=== PATIENT | male | born 1980 ===

== ENCOUNTER 2018-10-02 05:29 | Observation (INO) | payer MEDICAID, OTHER ==
[2018-10-02 06:41] LABS: BASO % 0.3 % (0.0-2.0); EOS % 0.1 % (0.0-4.0); HEMOGLOBIN 17.1 g/dL (12.0-18.0); LYMPH # 1.5 K/uL (1.0-4.3); LYMPH % 16.8 % (20.0-40.0); MEAN CELL VOLUME 85.6 fl (80.0-94.0); MEAN CORPUSCULAR HEMOGLOBIN 29.5 pg (27.0-31.0); MEAN CORPUSCULAR HGB CONC 34.5 g/dL (33.0-37.0); MEAN PLATELET VOLUME 9.4 fl (7.2-11.7); MONO # 0.4 K/uL (0.0-0.8); MONO % 4.5 % (0.0-10.0); NEUT # 7.2 K/uL (1.8-7.0); NEUT % 78.3 % (50.0-75.0); NRBC % 0.1 % (0.0-0.0); RBC 5.79 Mil/uL (4.40-5.90); RED CELL DISTRIBUTION WIDTH 13.9 % (11.5-14.5); WHITE BLOOD COUNT 9.1 K/uL (4.8-10.8)
[2018-10-02 07:30] LABS: BARBITURATES, UR NEGATIVE (NEGATIVE); BENZODIAZEPINES, UR NEGATIVE (NEGATIVE); OPIATES, UR NEGATIVE (NEGATIVE); PHENCYCLIDINE, UR NEGATIVE (NEGATIVE)
[2018-10-02 07:32] LABS: BLOOD UREA NITROGEN 3 mg/dl (9-20)
[2018-10-02 07:34] LABS: CALCIUM 9.1 mg/dL (8.4-10.2); GFR NON-AFRICAN AMERICAN > 60
--- NOTE | 2018-10-02 07:39 | ED PDOC ---
- Laboratory Results Result Diagrams: 10/02/18 04:20 10/02/18 04:20 Lab Results: Troponin I < 0.0120 ng/mL (0.00-0.120) 10/02/18 04:20 Medical Decision Making Medical Decision Making: Time: 7:00 Patient was signed out to me pending sobriety. Accession No. 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 PLEURA: No significant pleural effusion identified. No pneumothorax apparent. CARDIOVASCULAR: No aortic atherosclerotic calcification present. Normal cardiac size. No pulmonary vascular congestion. OSSEOUS STRUCTURES: No significant abnormalities. VISUALIZED UPPER ABDOMEN: Normal. OTHER FINDINGS: None. IMPRESSION: No active disease. Scribe Attestation: Documented by Ellen Sosa, acting as a scribe for Ellen Alfredo MD. Provider Scribe Attestation: All medical record entries made by the Scribe were at my direction and per sonally dictated by me. I have reviewed the chart and agree that the record accurately reflects my personal performance of the history, physical exam, medical decision making, and the department course for this patient. I have also personally directed, reviewed, and agree with the discharge instructions and disposition.
[2018-10-02 07:57] VITALS: BMI 28.3
[2018-10-02] MEDS ORDERED: Sodium Chloride 0.9% 1,000 ML IV STA (08:30)
--- NOTE | 2018-10-02 09:21 | RAD ---
Date of service: 10/02/2018 HISTORY: Bilateral chest pain COMPARISON: No prior study available for comparison TECHNIQUE: Chest PA and lateral FINDINGS: LUNGS: No active pulmonary disease. PLEURA: No significant pleural effusion identified. No pneumothorax apparent. CARDIOVASCULAR: No aortic atherosclerotic calcification present. Normal cardiac size. No pulmonary vascular congestion. OSSEOUS STRUCTURES: No significant abnormalities. VISUALIZED UPPER ABDOMEN: Normal. OTHER FINDINGS: None. IMPRESSION: No active disease.
[2018-10-02 11:13] LABS: PROTHROMBIN TIME 11.5 Seconds (9.8-13.1)
[2018-10-02 11:15] LABS: PARTIAL THROMBOPLASTIN TIME 27.1 Seconds (25.6-37.1)
--- NOTE | 2018-10-02 12:11 | CARD ---
APPROVED REPORT Date of service: 10/02/2018 EKG Measurement Heart [id number] <Conclusion> Sinus tachycardia Possible Left atrial enlargement T wave abnormality, consider inferior ischemia Abnormal ECG
[2018-10-02] MEDS ORDERED: Iodixanol 320 MG/ML 100 ML BOTTLE IV ONE (13:01)
[2018-10-02] MEDS ORDERED: Sodium Chloride 0.9% 50 ML IV ONE (13:01)
--- NOTE | 2018-10-02 14:48 | CT ---
Date of service: 10/02/2018 PROCEDURE: CT Chest with contrast (Pulmonary Angiogram) HISTORY: Bilateral CP COMPARISON: None available. TECHNIQUE: Axial computed tomography images were obtained of the chest in the pulmonary arterial phase of enhancement. Coronal and sagittal reformatted images were created and reviewed. Intravenous contrast dose: 95 mL Visipaque 320 Radiation dose: Total exam DLP = 358.44 mGy-cm. This CT exam was performed using one or more of the following dose reduction techniques: Automated exposure control, adjustment of the mA and/or kV according to patient size, and/or use of iterative reconstruction technique. FINDINGS: PULMONARY ARTERIES: Suboptimal opacification of the pulmonary arteries. Questionable nonobstructive pulmonary embolism in a right upper lobe segmental artery (series 3, image 33). AORTA: No acute findings. No thoracic aortic aneurysm. No aortic atherosclerotic calcification or mural plaque present. LUNGS: Unremarkable. No nodule, mass or pulmonary consolidation. PLEURAL SPACES: Unremarkable. No effusion or pneumothorax. HEART: Unremarkable. No cardiomegaly. No significant pericardial effusion. LYMPH NODES: No lymphadenopathy. BONES, CHEST WALL: Unremarkable. No fracture or destructive lesion OTHER FINDINGS: Unremarkable. IMPRESSION: Suboptimal opacification of the pulmonary arteries. Questionable nonobstructive pulmonary embolism in a right upper lobe segmental artery.
[2018-10-02] MEDS ORDERED: Enoxaparin 80 mg Syringe SC STA (14:55)
[2018-10-02] MEDS ORDERED: Multivitamin (MVI) 10 ML, Thiamine 100 MG, Folic Acid 1 MG in Sodium Chloride 0.9% 1,00... IV ONE (15:57)
[2018-10-02] MEDS ORDERED: Glucagon Recombinant 1 mg Inj IM PRN (16:12)
[2018-10-02] MEDS ORDERED: Dextrose 50% SYRINGE Inj (50 ml) IV PRN (16:12)
[2018-10-02] MEDS ORDERED: Dextrose 50% SYRINGE Inj (50 ml) IVP PRN (16:12)
--- NOTE | 2018-10-02 16:18 | CP.PCM.HP ---
<Linda Simmons - Last Filed: 10/02/18 17:03> History of Present Illness - History of Present Illness History of Present Illness: 38 yo male with history of DM2, htn and alcohol withdrawal presented to the ED because of chest pain that began at 1 am. He reports that he was in remission from drinking until the holidays where he began drinking heavily. He reports his last drink was last night since he began to feel this non-radiating chest pain. Chest pain is associated with palpitations, nausea, dizziness, dypsnea, and shaking. He denies fevers, chills, bilateral calf pain, or tremors today. Patient reports he was having tremors of his hands the past few days. ROS: negative except for stated above. 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 He reports a previous smoking history (1 cigarette/day) for an unknown amount of years but states he quit several years ago. Reports a heavy drinking history for many years but stopped when he was diagnosed with DM2 10 years ago. Allergies: NKDA ED: Vitals: tachycardic - D-dimer - CBC - BMP - CT angio chest- Pulmonary Embolism - PT/ PTT/ INR - Troponins (negative x2) Utox: negative except for alcohol (116) - Chest Xray: negative - EKG: Sinus tachycardia, Possible left atrial enlargement - Chest CT : suboptimal opacification of pulmonary arteries. Questionable nonobstructive pulmonary embolism in the right upper lobe segmental artery. - Lovenox 80mg SC stat - Lopressor 25mg po Stat - 1L bolus of NS Present on Admission - Present on Admission Any Indicators Present on Admission: No History of DVT/PE: No History of Uncontrolled Diabetes: No Review of Systems - Constitutional Constitutional: absent: Fatigue, Fever, Headache - EENT Eyes: absent: Change in Vision - Cardiovascular Cardiovascular: Chest Pain, Chest Pain at Rest, Chest Pain with Activity, Dyspnea, Dyspnea on Exertion, Palpitations, Rapid Heart Rate. absent: Edema, Pain Radiating to Arm/Neck/Jaw, Leg Edema, Pedal Edema Additional comments: palpitations - Respiratory Respiratory: Dyspnea. absent: Cough, Hemoptysis, Dyspnea on Exertion, Wheezing, Chest Congestion - Gastrointestinal Gastrointestinal: Nausea. absent: Abdominal Pain, Cramping, Diarrhea, Dysphagia - Genitourinary Genitourinary: As Per HPI - Neurological Neurological: Dizziness - Psychiatric Psychiatric: absent: Anxiety, Auditory Hallucinations, Hallucinations, Visual Hallucinations Meds Allergies/Adverse Reactions: Allergies Allergy/AdvReac Type Severity Reaction Status Date / Time No Known Allergies Allergy Verified 10/02/18 07:56 Physical Exam - Constitutional Appears: Non-toxic, No Acute Distress - Head Exam Head Exam: NORMAL INSPECTION - Eye Exam Eye Exam: Normal appearance - ENT Exam ENT Exam: Mucous Membranes Moist - Respiratory Exam Respiratory Exam: Clear to Auscultation Bilateral, NORMAL BREATHING PATTERN. absent: Accessory Muscle Use, Chest Wall Tenderness, Decreased Breath Sounds, Prolonged Expiratory Phase, Rales, Rhonchi, Wheezes, Respiratory Distress, Stridor - Cardiovascular Exam Cardiovascular Exam: Tachycardia, REGULAR RHYTHM, +S1, +S2. absent: Clicks, Diastolic murmur, Gallop, Irregular Rhythm, Rubs, +S4, Systolic Murmur - GI/Abdominal Exam GI & Abdominal Exam: Normal Bowel Sounds, Soft. absent: Distended, Firm, Guarding, Rebound, Rigid, Tenderness - Extremities Exam Extremities exam: Positive for: normal capillary refill, normal inspection, pedal pulses present. Negative for: calf tenderness, pedal edema, tenderness Additional comments: Mild tremor noted bilaterally of upper extremities as they were held straight out. - Neurological Exam Neurological exam: Alert, Normal Gait, Oriented x3 - Skin Skin Exam: Dry, Intact, Normal Color, Warm Results - Vital Signs Recent Vital Signs: Last Vital Signs Temp 98.7 F 10/02/18 15:01 Pulse 94 H 10/02/18 14:58 Resp 18 10/02/18 14:58 BP 148/93 H 10/02/18 14:58 Pulse Ox 99 10/02/18 14:58 - Labs Result Diagrams: 10/02/18 04:20 10/02/18 04:20 Labs: Laboratory Results - last 24 hr 10/02/18 10/02/18 10/02/18 04:20 04:20 04:20 WBC 9.1 RBC 5.79 Hgb 17.1 Hct 49.6 MCV 85.6 MCH 29.5 MCHC 34.5 RDW 13.9 Plt Count 249 MPV 9.4 Neut % (Auto) 78.3 H Lymph % (Auto) 16.8 L [place] % (Auto) 4.5 Eos % (Auto) 0.1 Baso % (Auto) 0.3 Neut # (Auto) 7.2 H Lymph # (Auto) 1.5 Ashley # (Auto) 0.4 Eos # (Auto) 0.0 Baso # (Auto) 0.0 PT INR APTT D-Dimer, Quantitative Sodium 134 Potassium 4.0 Chloride 95 L Carbon Dioxide 22 Anion Gap 21 H BUN 3 L Creatinine 0.6 L Est GFR ( Amer) > 60 Est GFR (Non-Af Amer) > 60 Random Glucose 287 H Calcium 9.1 Troponin I < 0.0120 Urine Opiates Screen Negative Urine Methadone Screen Negative Ur Barbiturates Screen Negative Ur Phencyclidine Scrn Negative Ur Amphetamines Screen Negative U Benzodiazepines Scrn Negative U Oth Cocaine Metabols Negative U Cannabinoids Screen Negative Alcohol, Quantitative 116 H 10/02/18 10/02/18 10:34 10:34 WBC RBC Hgb Hct MCV MCH MCHC RDW Plt Count MPV Neut % (Auto) Lymph % (Auto) [place] % (Auto) Eos % (Auto) Baso % (Auto) Neut # (Auto) Lymph # (Auto) Ashley # (Auto) Eos # (Auto) Baso # (Auto) PT 11.5 INR 1.0 APTT 27.1 D-Dimer, Quantitative 385 H Sodium Potassium Chloride Carbon Dioxide Anion Gap BUN Creatinine Est GFR ( Amer) Est GFR (Non-Af Amer) Random Glucose Calcium Troponin I < 0.0120 Urine Opiates Screen Urine Methadone Screen Ur Barbiturates Screen Ur Phencyclidine Scrn Ur Amphetamines Screen U Benzodiazepines Scrn U Oth Cocaine Metabols U Cannabinoids Screen Alcohol, Quantitative Assessment & Plan (1) Pulmonary embolism Status: Acute (2) Alcohol withdrawal Status: Acute (3) Diabetes mellitus type 2 in nonobese Status: Acute (4) Essential (primary) hypertension Status: Chronic (5) DVT prophylaxis Status: Acute (6) Full code status Status: Acute - Assessment and Plan (Free Text) Assessment: 38 yo male with history of DM2, HTN, and alcohol withdrawal admitted for pulmonary embolism and alcohol withdrawal. Plan: 1. Pulmonary embolism - Tachycardia - D dimer - 385 - CT chest angio : suboptimal opacification of pulmonary arteries. Questionable nonobstructive pulmonary embolism in the right upper lobe segmental artery. - Lovenox therapeutic dose- 80mg Q12H - Banana bag - EKG - evidence of pulmonary embolism - Chest Xray : negative -F/U Venous doppler - F/U am labs including inr, pt and ptt 2. Alcohol abuse with alcohol withdrawal - CIWA score of 3 - banana bag - Librium 25mg Q8H - Ativan Q4H PRN - Neuro checks Q4H - Q1 CIWA 3. Hypertension continue home medication of lisinopril 5mg daily 4. history of DM2 - Hold home dose of metformin given dose of contrast given for CT angio - Continue glipizide - hypoglycemia protocol - insulin sliding scale 5. DVT prophylaxis - SCD's, ambulation and lovenox. <Isaac Hutchison - Last Filed: 10/03/18 09:52> Results - Vital Signs Recent Vital Signs: Last Vital Signs Temp 98.0 F 10/03/18 08:47 Pulse 87 10/03/18 08:47 Resp 20 10/03/18 08:47 BP 146/97 H 10/03/18 08:47 Pulse Ox 98 10/03/18 08:47 - Labs Result Diagrams: 10/03/18 04:25 10/03/18 04:25 Labs: Laboratory Results - last 24 hr 10/02/18 10/02/18 10/02/18 10:34 10:34 17:26 WBC RBC Hgb Hct MCV MCH MCHC RDW Plt Count PT 11.5 INR 1.0 APTT 27.1 D-Dimer, Quantitative 385 H Sodium Potassium Chloride Carbon Dioxide Anion Gap BUN Creatinine Est GFR ( Amer) Est GFR (Non-Af Amer) POC Glucose (mg/dL) 216 H Random Glucose Calcium Troponin I < 0.0120 10/03/18 10/03/18 10/03/18 01:22 04:25 04:25 WBC 7.1 RBC 5.22 Hgb 15.6 Hct 45.2 MCV 86.6 MCH 29.8 MCHC 34.4 RDW 13.7 Plt Count 187 PT INR APTT D-Dimer, Quantitative Sodium 134 Potassium 3.5 L Chloride 99 Carbon Dioxide 25 Anion Gap 14 BUN 9 Creatinine 0.5 L Est GFR ( Amer) > 60 Est GFR (Non-Af Amer) > 60 POC Glucose (mg/dL) 252 H Random Glucose 198 H Calcium 8.7 Troponin I 10/03/18 10/03/18 05:26 08:42 WBC RBC Hgb Hct MCV MCH MCHC RDW Plt Count PT 11.2 INR 1.0 APTT 33.6 D-Dimer, Quantitative Sodium Potassium Chloride Carbon Dioxide Anion Gap BUN Creatinine Est GFR ( Amer) Est GFR (Non-Af Amer) POC Glucose (mg/dL) 209 H Random Glucose Calcium Troponin I Attending/Attestation - Attestation I have personally seen and examined this patient.: Yes I have fully participated in the care of the patient.: Yes I have reviewed all pertinent clinical information: Yes Notes (Text): 10/03/18 09:51 Patient seen and examined with resident. Case discussed and agreed with assessment and plan of management.
--- NOTE | 2018-10-02 17:40 | US ---
Date of service: 10/02/2018 PROCEDURE: Bilateral lower extremity venous duplex Doppler. HISTORY: rule out dvt COMPARISON: None available. TECHNIQUE: Bilateral common femoral, superficial femoral, popliteal and posterior tibial veins were evaluated. Flow was assessed with color Doppler, compressibility, assessment of phasic flow and augmentation response. FINDINGS: COMMON FEMORAL VEIN: Right CFV: Unremarkable. Left CFV: Unremarkable. SUPERFICIAL FEMORAL VEIN: Right SFV: Unremarkable. Left SFV: Unremarkable. POPLITEAL VEIN: Right Popliteal: Unremarkable. Left Popliteal: Unremarkable. POSTERIOR TIBIAL VEIN: Right PTV: Unremarkable. Left PTV: Unremarkable. OTHER FINDINGS: None. IMPRESSION: No evidence of deep venous thrombosis.
[2018-10-02] MEDS ORDERED: Enoxaparin 80 mg Syringe SC SCH (21:00)
[2018-10-02] MEDS: Enoxaparin 80 mg Syringe SC SCH (21:42)
[2018-10-03] MEDS ORDERED: Lidocaine 1% Inj (20ml) ONE (00:25)
[2018-10-03] MEDS: Insulin Regular 100 units/ml SC SCH ×3 (01:31→12:32)
[2018-10-03 06:06] LABS: HEMOGLOBIN 15.6 g/dL (12.0-18.0); MEAN CELL VOLUME 86.6 fl (80.0-94.0); MEAN CORPUSCULAR HEMOGLOBIN 29.8 pg (27.0-31.0); MEAN CORPUSCULAR HGB CONC 34.4 g/dL (33.0-37.0); RBC 5.22 Mil/uL (4.40-5.90); RED CELL DISTRIBUTION WIDTH 13.7 % (11.5-14.5); WHITE BLOOD COUNT 7.1 K/uL (4.8-10.8)
[2018-10-03 06:28] LABS: BLOOD UREA NITROGEN 9 mg/dl (9-20); CALCIUM 8.7 mg/dL (8.4-10.2); GFR NON-AFRICAN AMERICAN > 60
--- NOTE | 2018-10-03 08:49 | CP.PCM.DIS ---
Provider - Provider Date of Admission: 10/02/18 15:07 Attending physician: Isaac Hutchison MD Primary care physician: [facility]- Time Spent in preparation of Discharge (in minutes): 30 Diagnosis - Discharge Diagnosis (1) Pulmonary embolism Status: Acute (2) Alcohol withdrawal Status: Acute (3) Diabetes mellitus type 2 in nonobese Status: Acute (4) Essential (primary) hypertension Status: Chronic (5) DVT prophylaxis Status: Acute (6) Full code status Status: Acute Hospital Course - Lab Results Lab Results: Most Recent Lab Values WBC 7.1 K/uL (4.8-10.8) 10/03/18 04:25 RBC 5.22 Mil/uL (4.40-5.90) 10/03/18 04:25 Hgb 15.6 g/dL (12.0-18.0) 10/03/18 04:25 Hct 45.2 % (35.0-51.0) 10/03/18 04:25 MCV 86.6 fl (80.0-94.0) 10/03/18 04:25 MCH 29.8 pg (27.0-31.0) 10/03/18 04:25 MCHC 34.4 g/dL (33.0-37.0) 10/03/18 04:25 RDW 13.7 % (11.5-14.5) 10/03/18 04:25 Plt Count 187 K/uL (130-400) 10/03/18 04:25 MPV 9.4 fl (7.2-11.7) 10/02/18 04:20 Neut % (Auto) 78.3 % (50.0-75.0) H 10/02/18 04:20 Lymph % (Auto) 16.8 % (20.0-40.0) L 10/02/18 04:20 [place] % (Auto) 4.5 % (0.0-10.0) 10/02/18 04:20 Eos % (Auto) 0.1 % (0.0-4.0) 10/02/18 04:20 Baso % (Auto) 0.3 % (0.0-2.0) 10/02/18 04:20 Neut # (Auto) 7.2 K/uL (1.8-7.0) H 10/02/18 04:20 Lymph # (Auto) 1.5 K/uL (1.0-4.3) 10/02/18 04:20 [place] # (Auto) 0.4 K/uL (0.0-0.8) 10/02/18 04:20 Eos # (Auto) 0.0 K/uL (0.0-0.7) 10/02/18 04:20 Baso # (Auto) 0.0 K/uL (0.0-0.2) 10/02/18 04:20 PT 11.5 Seconds (9.8-13.1) 10/02/18 10:34 INR 1.0 10/02/18 10:34 APTT 27.1 Seconds (25.6-37.1) 10/02/18 10:34 D-Dimer, Quantitative 385 ng/mlDDU (0-230) H 10/02/18 10:34 Sodium 134 mmol/l (132-148) 10/03/18 04:25 Potassium 3.5 MMOL/L (3.6-5.0) L 10/03/18 04:25 Chloride 99 mmol/L (98-107) 10/03/18 04:25 Carbon Dioxide 25 mmol/L (22-30) 10/03/18 04:25 Anion Gap 14 (10-20) 10/03/18 04:25 BUN 9 mg/dl (9-20) 10/03/18 04:25 Creatinine 0.5 mg/dl (0.8-1.5) L 10/03/18 04:25 Est GFR ( Amer) > 60 10/03/18 04:25 Est GFR (Non-Af Amer) > 60 10/03/18 04:25 POC Glucose (mg/dL) 209 mg/dL (65-110) H 10/03/18 05:26 Random Glucose 198 mg/dL (75-110) H 10/03/18 04:25 Calcium 8.7 mg/dL (8.4-10.2) 10/03/18 04:25 Troponin I < 0.0120 ng/mL (0.00-0.120) 10/02/18 10:34 Urine Opiates Screen Negative (NEGATIVE) 10/02/18 04:20 Urine Methadone Screen Negative (NEGATIVE) 10/02/18 04:20 Ur Barbiturates Screen Negative (NEGATIVE) 10/02/18 04:20 Ur Phencyclidine Scrn Negative (NEGATIVE) 10/02/18 04:20 Ur Amphetamines Screen Negative (NEGATIVE) 10/02/18 04:20 U Benzodiazepines Scrn Negative (NEGATIVE) 10/02/18 04:20 U Oth Cocaine Metabols Negative (NEGATIVE) 10/02/18 04:20 U Cannabinoids Screen Negative (NEGATIVE) 10/02/18 04:20 Alcohol, Quantitative 116 mg/dl (0-10) H 10/02/18 04:20 - Hospital Course Hospital Course: 38 yo male with history of DM2, htn and alcohol withdrawal presented to the ED because of chest pain admitted for pulmonary embolism. Patient was tachycardic on the floor but was saturating 97-98% on room air. He was started on Lovenox 80mg Q12H for treatment of pulmondary embolism. D- DImer was only slightly elevated at 385. Dupplex of bilateral lower extremities were negative for DVT. Patient did not have any precipating factors for P.E. He did not have any telemetry events. Patient being discharged on Eliquis 10mg po BID for 7 days then 5 mg po bid. Patient will follow in the [facility]. Patient to repeat CTA of chest in 1 month. - Date & Time of H&P Date of H&P: 10/02/18 Discharge Exam - Head Exam Head Exam: NORMAL INSPECTION - Eye Exam Eye Exam: Normal appearance - ENT Exam ENT Exam: Mucous Membranes Moist - Respiratory Exam Respiratory Exam: Clear to PA & Lateral, NORMAL BREATHING PATTERN, UNREMARKABLE. absent: Decreased Breath Sounds, Prolonged Expiratory Phase, Rales, Rhonchi, Wheezes, Respiratory Distress, Stridor - Cardiovascular Exam Cardiovascular Exam: REGULAR RHYTHM, RRR, +S1, +S2. absent: Clicks, Diastolic murmur, Gallop, JVD, Rubs, +S4, Systolic Murmur - GI/Abdominal Exam GI & Abdominal Exam: Normal Bowel Sounds, Soft, Unremarkable. absent: Distended, Firm, Guarding, Rebound, Rigid, Tenderness - Extremities Exam Extremities exam: normal capillary refill, normal inspection - Neurological Exam Neurological exam: Alert, Oriented x3 - Skin Skin Exam: Dry, Intact, Normal Color, Warm Discharge Plan - Discharge Medications Prescriptions: Apixaban [Eliquis] 10 mg PO BID 7 Days #14 tablet Apixaban [Eliquis] 5 mg PO BID 30 Days #60 tablet Aspirin [Low Dose Aspirin EC] 81 mg PO DAILY #30 tablet. Atorvastatin [Lipitor] 10 mg PO DIN #30 tab metFORMIN [glucOPHAGE] 500 mg PO BID #60 tab - Follow Up Plan Condition: GOOD Disposition: HOME/ ROUTINE Instructions: Pulmonary Embolism (Blood Clot in the Lungs) (DC), Alcohol Withdrawal (DC), Going Home on Blood Thinners Additional Instructions: Follow up in clinic 10/07/18 @ 11:[address] Hu. Patient given script for CTA chest to be repeated in 1 month Scripts sent to pharmacy Specifically- Patient will begin taking Eliquis 10mg po BID for 7 days then 5mg po BID. This was explained to patient. Referrals: [facility] [place] [Outside]
[2018-10-03 08:56] LABS: PROTHROMBIN TIME 11.2 Seconds (9.8-13.1)
[2018-10-03 08:59] LABS: PARTIAL THROMBOPLASTIN TIME 33.6 Seconds (25.6-37.1)
[2018-10-03] MEDS ORDERED: GlipiZIDE 10 mg SR Tab PO SCH (09:00)
[2018-10-03] MEDS ORDERED: Multivitamin With Minerals Tab PO SCH (09:00)
[2018-10-03] MEDS: Enoxaparin 80 mg Syringe SC SCH (10:24)
[2018-10-03 12:11] VITALS: BP 128/85; PULSE 82; RESP 18; TEMP 97.9; O2SAT 97
== END 2018-10-03 14:00 | disposition home or self-care (01) ==
LOC: H.ER 05:29 → H.ERHOLD 15:07 → INTOOBSV 15:07 → H.TEL 18:34
DX: R07.89 Other chest pain (principal); I10 Essential (primary) hypertension; Z87.891 Personal history of nicotine dependence; Z91.14 Patient's other noncompliance with medication regimen; E11.65 Type 2 diabetes mellitus with hyperglycemia; F41.9 Anxiety disorder, unspecified; Y90.5 Blood alcohol level of 100-119 mg/100 ml; F10.129 Alcohol abuse with intoxication, unspecified
CPT/HCPCS: 36415; 71046; 71275; 80048; 82948; 84484; 85025; 85027; 85378; 85610; 85730; 86316; 93005; 93970; 96360; 96372; 99285; G0378; G0480; J1650; J2060; J3411; J7030; Q9967